=== PATIENT | male | born 1960 | race Caucasian/White ===

== ENCOUNTER 2022-07-14 19:24 | Emergency (ER) | payer OTHER ==
[~2022-07-14] VITALS: Ht 170.2 cm; Wt 100.0 kg
[2022-07-14 20:12] VITALS: BP 129/77
== END 2022-07-14 21:59 | disposition home or self-care (01) ==
LOC: ER 19:24
DX: R04.0 Epistaxis (principal); Z95.5 Presence of coronary angioplasty implant and graft
CPT/HCPCS: 30901

== ENCOUNTER 2023-10-22 04:09 | Emergency (ER) | payer OTHER ==
[~2023-10-22] VITALS: Ht 182.9 cm; Wt 105.0 kg
[2023-10-22 05:00] VITALS: PULSE 64; RESP 17; O2SAT 96
[2023-10-22] MEDS: MORPHINE SULFATE 4 MG/ML SYR/VIAL IV ONE (05:02)
[2023-10-22 06:01] LABS: Basophils # (auto) 0.1 10 ^3/uL (0-0.2); Basophils % (auto) 0.7 % (0.0-2.0); Eosinophils # (auto) 0 10 ^3/uL (0-0.8); Eosinophils % (auto) 0.4 % (0.0-7.0); Hematocrit 37.5 % (41.0-53.0); Lymphocytes # (auto) 0.9 10 ^3/uL (0.4-5.4); Lymphocytes % (auto) 10.1 % (10.0-50.0); Mean Corpuscular Hemoglobin 28.9 pg (28.0-32.0); Mean Corpuscular Hgb Conc. 34.6 g/dL (32.0-36.0); Mean Corpuscular Volume 83.7 fL (80.0-100.0); Monocytes # (auto) 0.8 10 ^3/uL (0-1.3); Monocytes % (auto) 8.4 % (0.0-12.0); Neutrophils # (auto) 7.5 10 ^3/uL (1.6-8.6); Neutrophils % (auto) 80.4 % (37.0-80.0); Red Blood Cells 4.48 10^6/uL (4.5-5.90); Red Cell Distribution Width 13.7 % (11.8-14.3); White Blood Cell 9.3 10^3/uL (4.4-10.8)
[2023-10-22 06:14] LABS: Chloride 101 mmol/L (98-107); Potassium 3.2 mmol/L (3.5-5.1); Sodium 130 mmol/L (136-145)
[2023-10-22 06:15] LABS: Anion Gap 7 (5-15); Calcium 9.2 mg/dL (8.7-10.4); Carbon Dioxide 22 mmol/L (20-30)
[2023-10-22 06:20] LABS: BUN/Creatinine Ratio 10.1 (10.0-20.0); Blood Urea Nitrogen 10 mg/dL (9-23); Glucose 124 mg/dL (74-106)
[2023-10-22 06:40] LABS: Urine Bacteria FEW /hpf (None Seen); Urine Blood Negative /uL (Negative); Urine Clarity Clear (Clear); Urine Color Light-Yellow (Yellow); Urine Protein, UAD Negative (Negative); Urine Specific Gravity 1.005 (1.001-1.035); Urine Urobilinogen Normal (Negative); Urine WBC 2 /hpf (0 - 3); Urine pH 5.5 (5.0-9.0)
[2023-10-22] MEDS ORDERED: OXYB2.5T PO (06:54)
[2023-10-22] MEDS: OXYBUTYNIN CHL 5 MG TAB PO ONE (07:06)
[2023-10-22 07:30] VITALS: BP 118/69; PULSE 70; RESP 16; TEMP 98.8; O2SAT 94
== END 2023-10-22 09:01 | disposition home or self-care (01) ==
LOC: ER 04:09 → EDBD 04:09 → ER 09:01
DX: R33.9 Retention of urine, unspecified (principal); I25.10 Atherosclerotic heart disease of native coronary artery without angina pectoris; Z98.61 Coronary angioplasty status
CPT/HCPCS: 36415; 51702; 80048; 81001; 85025; 96374; 99285; J2270